=== PATIENT | female | born 1995 | race American Indian/Alaskan Native ===

== ENCOUNTER 2017-03-16 20:02 | Inpatient (IN) | payer MEDICAID ==
[2017-03-16 20:16] VITALS: BMI 26.8
[2017-03-16] MEDS: Lactated Ringer's 1,000 ML IV SCH (20:45)
--- NOTE | 2017-03-16 20:57 | OBADHP ---
Datetime: 03/16/2017 20:51 Admit Comment, IP Provider: Admit for Labor Induction.for Oligohydramnios. Reassuring Status Pelvic Type - PN: Adequate Extremities - PN: Normal Abdomen - PN: Normal Back - PN: Normal Breast - PN: Not Done Lungs - PN: Normal Heart - PN: Normal Thyroid - PN: Not Done Neurologic - PN: Not Done HEENT - PN: Not Done General - PN: Normal Weight - Estimated: 3000 Presentation-Admit: Vertex FHR - Baseline A Provider: 130 Membranes, Provider: Intact Contraction Comments Provider: iRREGULAR Gestation - Est Wks by US: 40.0 IP Hx Assessment: The History has been Reviewed and is Current Vital Signs Provider: Reviewed; Within Normal Limits IP Chief Complaint: Uterine contractions; Scheduled induction of labor NICHD Variability Prov Fetus A: Moderate 6-25bpm NICHD Accel Fetus A IP Provider: 15X15 FHR Category Provider Fetus A: Category I NICHD Decel Fetus A IP Provider: None Dilatation, Provider: 1-2 Effacement, Provider: 50 Station, Provider: -2 Genitourinary Exam: Normal DTRs - PN: Normal EGA AdmitDate IP: 40.0 IP Adm Impression: Term, intrauterine ; No Active Labor IP Admit Plan: Admit to unit; Initiate labor induction protocol
[2017-03-16] MEDS ORDERED: Nalbuphine 20 mg/ml Inj (1 ml) IVP PRN (21:00)
[2017-03-16 21:28] LABS: LYMPH # 1.6 K/uL (1.0-4.3); MONO # 0.7 K/uL (0.0-0.8); NRBC % 0.1 % (0.0-2.0)
[2017-03-16 21:35] LABS: BASO % 0.3 % (0.0-2.0); EOS % 0.7 % (0.0-4.0); HEMATOCRIT 35.4 % (34.0-47.0); LYMPH % 24.5 % (20.0-40.0); MEAN CELL VOLUME 84.8 fL (81.0-99.0); MEAN CORPUSCULAR HEMOGLOBIN 27.8 pg (27.0-31.0); MEAN CORPUSCULAR HGB CONC 32.8 g/dL (33.0-37.0); MEAN PLATELET VOLUME 11.7 fL (7.2-11.7); MONO % 10.9 % (0.0-10.0); RED CELL DISTRIBUTION WIDTH 14.2 % (11.5-14.5); WHITE BLOOD COUNT 6.7 K/uL (4.8-10.8)
[2017-03-16 21:39] LABS: GFR AFRICAN-AMERICAN > 60; GLUCOSE,RANDOM 75 mg/dL (65-105)
[2017-03-16 21:42] LABS: URINE BILIRUBIN NEGATIVE (NEGATIVE); URINE BLOOD NEGATIVE (NEGATIVE); URINE COLOR Straw (YELLOW); URINE GLUCOSE (UA) NORMAL (Normal); URINE KETONE NEGATIVE (NEGATIVE); URINE LEUKOCYTE ESTERASE NEG Leu/uL (Negative); URINE PROTEIN NEGATIVE (NEGATIVE); URINE UROBILINOGEN NORMAL mg/dL (0.2-1.0); WBC URINE < 1 /hpf (0-5)
[2017-03-17] MEDS ORDERED: Nalbuphine 20 mg/ml Inj (1 ml) ONE (03:13)
[2017-03-17] MEDS: Lactated Ringer's 1,000 ML IV SCH (03:25)
[2017-03-17] MEDS ORDERED: Bupivacaine 0.125%/FentaNYL 200 ML EPI ONE (07:22)
--- NOTE | 2017-03-17 08:17 | OBPN ---
Datetime: 03/17/2017 07:13 IP Progress Impression: Normal progression of labor; Reassuring heart rate IP Informed Consent Obtain: Vaginal Delivery; Risks, Benefits and Alternatives Discussed IP Procedures: Sterile Vag Exam IP Progress Plan: Continue present management; Anticipate Vaginal Delivery Membranes, Provider: Ruptured Amniotic Fluid Color, Provider: Clear Contraction Comments Provider: Q 2min. FHR - Baseline A Provider: 130 Gestation - Est Wks by US: 40.0 Weight - Estimated: 3000 Presentation-Admit: Vertex IP Progress Note Comment: Active Labor. Reassuring Status. Vital Signs Provider: Reviewed; Within Normal Limits NICHD Accel Fetus A IP Provider: 15X15 FHR Category Provider Fetus A: Category I NICHD Variability Prov Fetus A: Moderate 6-25bpm Dilatation, Provider: 6 Effacement, Provider: 100 Station, Provider: -1 NICHD Decel Fetus A IP Provider: None
--- NOTE | 2017-03-17 08:57 | OBDS ---
DELIVERY PERSONNEL Delivery Doctor: Alba Shearer MD Scrub Nurse: Chasity Mcneil Gear Tooth Lapping Machine Operator: Stacy Renteria RN Anesthesiologist: ryan MATERNAL INFORMATION Delivery Anesthesia: Epidural Medications in Delivery: pitocin 20 Placenta Cultured: No Maternal Complications: None Provider Comments: TO A VIABLE BOY, 'S 9/9, UNCOMPLICATED LABOR SUMMARY EDC: 03/16/2017 00:00 No. Babies in Womb: 1 Attempted: No Labor Anesthesia: Epidural LABOR INFORMATION Onset of Labor: 03/17/2017 04:00 Complete Dilatation: 03/17/2017 08:09 Cervical Ripening Agents: Cytotec @ (Annotations: 50g PO) Oxytocin: N/A Group B Beta Strep: Negative Steroids Given: None Reason Steroids Not Administered: Not Applicable MEMBRANES Membranes Rupture Method: Spontaneous Rupture of Membranes: 03/17/2017 04:17 Length of Rupture (hrs): 4.38 Amniotic Fluid Color: Clear Amniotic Fluid Amount: Moderate Amniotic Fluid Odor: Normal STAGES OF LABOR Stage 1 hrs: 4 Stage 1 min: 9 Stage 2 hrs: 0 Stage 2 min: 31 Stage 3 hrs: 0 Stage 3 min: 6 Total Time in Labor hrs: 4 Total Time in Labor min: 46 VAGINAL DELIVERY Episiotomy: None Laceration Extension: N/A Laceration Type: None Laceration Repair: Not Applicable BABY A INFORMATION Delivery Date/Time: 03/17/2017 08:40 Method of Delivery: Vaginal Born in Route : No : N/A Forceps: N/A Vacuum Extraction: N/A Shoulder Dystocia : No SHOULDER DYSTOCIA BABY A Delivery Date/Time: 03/17/2017 08:40 PRESENTATION/POSITION BABY A Presentation: Cephalic Cephalic Presentation: Vertex Vertex Position: Right Occipital Anterior Breech Presentation: N/A PLACENTA INFORMATION BABY A Placenta Delivery Time : 03/17/2017 08:46 Placenta Method of Delivery: Spontaneous Placenta Status: Delivered SCORES BABY A Heart Rate 1 min: >100 bpm Resp Effort 1 min: Good Cry Reflex Irritability 1 min: Cough or Sneeze or Pulls Away Muscle Tone 1 min: Active Motion Color 1 min: Body Melfa, Extremities Blue Resuscitation Effort 1 min: Tactile Stimulation SCORE 1 MIN: 9 Heart Rate 5 min: >100 bpm Resp Effort 5 min: Good Cry Reflex Irritability 5 min: Cough or Sneeze or Pulls Away Muscle Tone 5 min: Active Motion Color 5 min: Body Melfa, Extremities Blue SCORE 5 MIN: 9 INFANT INFORMATION BABY A Gestational Age at Delivery: 40.0 Gestational Status: Term Outcome : Liveborn Condition : Stable Infant Sex: Male IDENTIFICATION/MEDS BABY A ID Band Number: [id number] Sensor Number: [id number] WEIGHT/LENGTH BABY A Birthweight (gms): 3595 Infant Weight (lb): 7 Infant Weight (oz): 15 Infant Length Inches: 20.50 Infant Length cms: 52.1 CORD INFORMATION BABY A No. Cord Vessels: 3 Nuchal Cord : N/A Cord Blood Taken: Yes Suction: Mouth; Nose ASSESSMENT BABY A Infant Complications: None Physical Findings at Delivery: Within Normal Limits Respirations: Appears Normal Toddler Lead Teacher/ALS Called : No Care By: abran Transferred To: Remains with Mother
[2017-03-17] MEDS: Multiple Vitamins Tab PO SCH (16:51)
[2017-03-18] MEDS: Multiple Vitamins Tab PO SCH (09:45)
[2017-03-18 20:14] LABS: HEMATOCRIT 37.2 % (34.0-47.0); MEAN CELL VOLUME 86.1 fL (81.0-99.0); MEAN CORPUSCULAR HEMOGLOBIN 27.9 pg (27.0-31.0); MEAN CORPUSCULAR HGB CONC 32.4 g/dL (33.0-37.0); MEAN PLATELET VOLUME 11.4 fL (7.2-11.7); PLATELET COUNT 124 K/uL (130-400); RED CELL DISTRIBUTION WIDTH 14.6 % (11.5-14.5); WHITE BLOOD COUNT 10.6 K/uL (4.8-10.8)
--- NOTE | 2017-03-18 21:55 | OBPPN ---
Datetime: 03/18/2017 21:37 PP Pain Prov: Within normal limits PP Nausea Prov: Denies PP Flatus Prov: Yes PP BM Prov: Yes PP Breasts Prov: Normal PP Heart Prov: Normal PP Lungs Prov: Normal PP Abdomen/Uterus Prov: Normal PP Lochia Prov: Normal PP Vulva/Perineum Prov: Normal PP CVA Tenderness Prov: Normal PP Extremities Prov: Normal PP C/S Incision Prov: Not Applicable PP Progress Prov: Normal PP Comments Phys Exam Prov: Uterus firm and contracted. Lochia minimal. PP Impression Prov: Normal progression PP Plan Prov: Continue present management PP Progress Note Prov: Stable. Anticipate dicharge tomorrow IP PP Procedures: None Vital Signs Provider PP: Reviewed; Within Normal Limits Vital Signs Provider Details PP: HgB 12.1g/dl
[2017-03-19 08:55] VITALS: BP 107/75; PULSE 93; RESP 18; TEMP 98; O2SAT 97
[2017-03-19] MEDS: Multiple Vitamins Tab PO SCH (09:16)
== END 2017-03-19 15:30 | disposition home or self-care (01) | DRG 373 ==
LOC: C.EROB 20:02 → C.4D 20:08 → C.4M 03-17 11:46
PROVIDERS: ADMIT Obstetrics & Gynecology; ATTEND Obstetrics & Gynecology
PROC: 3E0P7GC Introduction of Other Therapeutic Substance into Female Reproductive, Via Natural or Artificial Opening (ICD-10-PCS; 2017-03-16)
PROC: 10E0XZZ Delivery of Products of Conception, External Approach (ICD-10-PCS; principal; 2017-03-17)
DX: O41.03X0 Oligohydramnios, third trimester, not applicable or unspecified (principal); O48.0 Post-term pregnancy; Z3A.40 40 weeks gestation of pregnancy; Z37.0 Single live birth; Z23 Encounter for immunization